=== PATIENT | female | born 1990 | race Caucasian/White ===

== ENCOUNTER → 2016-06-23 | Outpatient (CLI) | payer OTHER ==
[~2016-06-23] MED LIST: AMIT50TA13 PO; CYMB30CA PO; GABA600T PO; HORI600T PO; HYDR-3516 PO; LITH300 PO; SERT100 PO; VITA20003 PO; VYVA30CA5 PO; Z.0.BCPILL PO
[2016-06-23 09:50] LABS: AUTOMATED NEUTROPHIL # 3.3 TH/MM3 (1.8-7.7); BASOPHIL % 0.6 % (0.0-2.0); EOSINOPHIL # 0.3 TH/MM3 (0-0.4); EOSINOPHIL % 4.1 % (0.0-4.0); HEMATOCRIT 40.8 % (35.0-46.0); HEMO FLAGS DIFF FINAL; LYMPH % 41.3 % (9.0-44.0); LYMPHOCYTE # 2.9 TH/MM3 (1.0-4.8); MEAN CELL VOLUME 87.2 FL (80.0-100.0); MEAN CORPUSCULAR HEMOGLOBIN 29.4 PG (27.0-34.0); MEAN CORPUSCULAR HGB CONC 33.7 % (32.0-36.0); MONO % 6.4 % (0.0-8.0); NEUT % 47.6 % (16.0-70.0); PLATELET COUNT 172 TH/MM3 (150-450); RED BLOOD COUNT 4.68 MIL/MM3 (4.00-5.30); RED CELL DISTRIBUTION WIDTH 14.2 % (11.6-17.2); WHITE BLOOD COUNT 6.9 TH/MM3 (4.0-11.0)
[2016-06-23 09:54] LABS: APTT (PATIENT) 27.3 SEC (24.3-30.1); INTERNATIONAL NORMALIZED RATIO 0.9 RATIO; PROTHROMBIN TIME - PATIENT 10.4 SEC (9.8-11.6)
[2016-06-23 09:57] LABS: BACTERIA, URINE FEW /hpf; BLOOD, URINE LARGE (NEG); GLUCOSE,URINE NEG (NEG); KETONE, URINE NEG (NEG); MUCUS URINE FEW /lpf (OCC); NITRITE,URINE NEG (NEG); PH, URINE 5.5 (5.0-8.5); SQUAMOUS EPITHELIAL CELL URINE 6 /hpf (0-5); URINE COLOR YELLOW (YELLW/STRAW)
[2016-06-23 09:58] LABS: COMMENT (UR) CULT NOT INDICATED; CULTURE IF INDICATED CULT NOT INDICATED
[2016-06-23 10:17] LABS: ALKALINE PHOSPHATASE 58 U/L (45-117); ALT (GPT) 19 U/L (10-53); ANION GAP 8 MEQ/L (5-15); AST (GOT) 13 U/L (15-37); BICARBONATE 27.1 MEQ/L (21.0-32.0); BLOOD UREA NITROGEN 15 MG/DL (7-18); CHLORIDE 107 MEQ/L (98-107); GLOMERULAR FILTRATION RATE 93 ML/MIN (>89); GLUCOSE,FASTING 80 MG/DL (74-99); POTASSIUM 4.1 MEQ/L (3.5-5.1); SODIUM (NA) 142 MEQ/L (136-145); TOTAL BILIRUBIN ADULT 0.3 MG/DL (0.2-1.0)
== END ==
LOC: CPRE 08:39
PROVIDERS: ATTEND Colon & Rectal Surgery
DX: Z01.812 Encounter for preprocedural laboratory examination (principal); K62.3 Rectal prolapse
CPT/HCPCS: 36415; 80053; 81001; 85025; 85610; 85730

== ENCOUNTER 2016-06-29 11:32 | Inpatient (IN) | payer OTHER ==
[~2016-06-29] VITALS: Ht 157.5 cm; Wt 66.3 kg
[~2016-06-29 11:32] MED LIST changes: -AMIT50TA13 PO; -HYDR-3516 PO; -LITH300 PO; -SERT100 PO; -Z.0.BCPILL PO
[2016-06-29] MEDS ORDERED: ONDANSETRON HCL 4 MG/2 ML VIAL IV PUSH ONE (12:00)
[2016-06-29] MEDS ORDERED: LACTATED RINGER'S 1000 ML INJ 1,000 ML IV ONE (12:00)
[2016-06-29] MEDS ORDERED: NEOSTIGMINE 3 MG/3 ML SYR IV ONE (12:00)
[2016-06-29] MEDS ORDERED: PROPOFOL 200 MG/20 ML AMP IV ONE (12:00)
[2016-06-29] MEDS ORDERED: ACETAMINOPHEN 1000 MG/100 ML VIAL IV ONE ×2 (12:00→15:34)
[2016-06-29] MEDS ORDERED: PHENYLEPH/NS 1000 MCG/10 ML SYR IV ONE (12:00)
[2016-06-29] MEDS ORDERED: CHLORHEXIDINE GLUCONATE 2 % 1 PACK (2 CLOTHS) TOP SCH (12:15)
[2016-06-29] MEDS ORDERED: POVIDONE IODINE 5% (ANTISEPSIS KIT) 4 APPLICATIONS EACH NARE SCH (12:15)
[2016-06-29 12:20] VITALS: BP 122/71; PULSE 125; RESP 16; TEMP 98.8; O2SAT 100
[2016-06-29] MEDS ORDERED: LACTATED RINGER'S 1000 ML INJ 1,000 ML ONE (12:37)
[2016-06-29] MEDS ORDERED: MIDAZOLAM HCL 2 MG/2 ML VIAL ONE (13:20)
[2016-06-29] MEDS ORDERED: DEXAMETHASONE SOD PHOS 4 MG/ML VIAL ONE (13:20)
[2016-06-29] MEDS ORDERED: ceFAZolin INJ 1,000 MG VIAL ONE (13:29)
[2016-06-29] MEDS ORDERED: metroNIDAZOLE 500 MG INJ 100 ML IV ONE (13:30)
[2016-06-29] MEDS ORDERED: ceFAZolin INJ 1,000 MG VIAL IV ONE (13:55)
[2016-06-29] MEDS ORDERED: fentaNYL CITRATE 250 MCG/5 ML AMP ONE ×2 (15:34→16:13)
[2016-06-29] MEDS ORDERED: POTASSIUM CHLOR 40 MEQ PREMIX 100 ML IV PRN (16:15)
[2016-06-29] MEDS ORDERED: ENALAPRILAT 2.5 MG/2 ML VIAL IV PRN (16:15)
[2016-06-29] MEDS ORDERED: ENALAPRILAT 1.25 MG/ML VIAL IV PRN (16:15)
[2016-06-29] MEDS ORDERED: NALOXONE HCL 0.4 MG/ML AMP IV PRN (16:15)
[2016-06-29] MEDS ORDERED: SODIUM CHLORIDE 0.9% FLUSH 5 ML FLUSH IVF PRN (16:15)
[2016-06-29] MEDS ORDERED: POTASSIUM CHLOR 20 MEQ PREMIX 100 ML IV PRN (16:15)
[2016-06-29] MEDS ORDERED: ACETAMINOPHEN 325 MG TAB PO PRN (16:15)
[2016-06-29] MEDS ORDERED: KETOROLAC TROMETHAMINE 30 MG/ML (IVP) VIAL IVP PRN (16:15)
[2016-06-29] MEDS ORDERED: BENZOCAINE 6 MG/MENTHOL 10 MG LOZENGE SUCK-ON PRN (16:15)
[2016-06-29] MEDS ORDERED: MORPHINE SULFATE 4 MG/ML INJ IV PUSH PRN (16:15)
[2016-06-29] MEDS ORDERED: diphenhydrAMINE HCL 50 MG/ML VIAL IV PRN (16:15)
[2016-06-29] MEDS ORDERED: Post-op Orders (for Pharmacy) MISC XX ONE (16:15)
[2016-06-29] MEDS ORDERED: ACETAMINOPHEN/HYDROcodone 325 MG/5 MG TAB PO PRN ×2 (16:15)
[2016-06-29] MEDS ORDERED: ONDANSETRON HCL 4 MG/2 ML VIAL IV PRN (16:15)
[2016-06-29] MEDS ORDERED: *MEPERIDINE 25 MG INJ VIAL PERIprocedural Use ONLY ONE (16:19)
[2016-06-29] MEDS ORDERED: *morphine SULFATE 8 MG/ML PERIprocedure ONLY ONE ×3 (16:31→17:02)
[2016-06-29 16:46] LABS: AUTOMATED NEUTROPHIL # 9.2 TH/MM3 (1.8-7.7); BASOPHIL % 0.2 % (0.0-2.0); EOSINOPHIL % 0.1 % (0.0-4.0); HEMATOCRIT 42.1 % (35.0-46.0); HEMO FLAGS DIFF FINAL; LYMPHOCYTE # 0.8 TH/MM3 (1.0-4.8); MEAN CELL VOLUME 87.9 FL (80.0-100.0); MEAN CORPUSCULAR HEMOGLOBIN 28.9 PG (27.0-34.0); MEAN CORPUSCULAR HGB CONC 32.9 % (32.0-36.0); NEUT % 90.7 % (16.0-70.0); PLATELET COUNT 166 TH/MM3 (150-450); RED BLOOD COUNT 4.78 MIL/MM3 (4.00-5.30); WHITE BLOOD COUNT 10.1 TH/MM3 (4.0-11.0)
[2016-06-29] MEDS: D5-NS + KCL 20 MEQ INJ 1,000 ML IV SCH (17:00)
[2016-06-29 17:09] LABS: BICARBONATE 22.6 MEQ/L (21.0-32.0); POTASSIUM 3.6 MEQ/L (3.5-5.1)
[2016-06-29] MEDS: VANCOMYCIN INJ 1,000 MG in SODIUM CHLOR 0.9% 250 ML INJ 250 ML IV SCH (17:13)
[2016-06-29] MEDS ORDERED: *diphenhydrAMINE HCL 50 MG/ML VIAL PERIprocedural Use ONLY ONE (17:28)
[2016-06-29] MEDS ORDERED: *HYDROmorphone PF 1 MG VIAL PERIprocedural Use ONLY ONE (17:38)
[2016-06-29] MEDS ORDERED: DO NOT ADM ANY ANTICOAGULANT DRUGS XX PRN (17:45)
[2016-06-29] MEDS ORDERED: LORazepam 2 MG/ML VIAL ONE (17:52)
[2016-06-29] MEDS ORDERED: KETOROLAC TROMETHAMINE 30 MG/ML (IVP) VIAL ONE (18:21)
[2016-06-29] MEDS ORDERED: LACTATED RINGER'S 1000 ML INJ 500 ML IV ONE (18:45)
[2016-06-29] MEDS ORDERED: KETOROLAC TROMETHAMINE 30 MG/ML (IVP) VIAL IVP ONE (18:45)
[2016-06-29 20:00] VITALS: BP 115/60; PULSE 132; PULSE 135; RESP 18; TEMP 98.1; O2SAT 98
[2016-06-29] MEDS: SODIUM CHLORIDE 0.9% FLUSH 5 ML FLUSH IVF SCH (20:56)
[2016-06-29 21:00] VITALS: PULSE 122
[2016-06-29 22:00] VITALS: PULSE 120
[2016-06-29 23:00] VITALS: PULSE 136
[2016-06-30] VITALS (20 sets, daily range): BP systolic 106–112; BP diastolic 53–76; PULSE 98–116; RESP 18; TEMP 97.9–98.2; O2SAT 98–100
[2016-06-30] MEDS: D5-NS + KCL 20 MEQ INJ 1,000 ML IV SCH ×2 (00:40→14:00)
[2016-06-30] MEDS: KETOROLAC TROMETHAMINE 30 MG/ML (IVP) VIAL IVP SCH ×2 (04:19→09:31)
[2016-06-30] MEDS: VANCOMYCIN INJ 1,000 MG in SODIUM CHLOR 0.9% 250 ML INJ 250 ML IV SCH (04:19)
[2016-06-30 06:31] LABS: AUTOMATED NEUTROPHIL # 5.9 TH/MM3 (1.8-7.7); BASOPHIL % 0.2 % (0.0-2.0); EOSINOPHIL % 0.5 % (0.0-4.0); HEMATOCRIT 35.2 % (35.0-46.0); HEMO FLAGS DIFF FINAL; LYMPH % 18.5 % (9.0-44.0); LYMPHOCYTE # 1.6 TH/MM3 (1.0-4.8); MEAN CELL VOLUME 86.8 FL (80.0-100.0); MEAN CORPUSCULAR HGB CONC 33.4 % (32.0-36.0); MONO % 9.7 % (0.0-8.0); NEUT % 71.1 % (16.0-70.0); PLATELET COUNT 156 TH/MM3 (150-450); RED BLOOD COUNT 4.05 MIL/MM3 (4.00-5.30); RED CELL DISTRIBUTION WIDTH 13.9 % (11.6-17.2); WHITE BLOOD COUNT 8.4 TH/MM3 (4.0-11.0)
[2016-06-30 06:56] LABS: BICARBONATE 26.1 MEQ/L (21.0-32.0); POTASSIUM 3.8 MEQ/L (3.5-5.1)
[2016-06-30] MEDS: GABAPENTIN 300 MG CAP PO SCH ×5 (09:00→15:28)
[2016-06-30] MEDS ORDERED: PANTOPRAZOLE SODIUM 40 MG VIAL IVP SCH (09:00)
[2016-06-30] MEDS ORDERED: DULoxetine HCl DR 30 MG CAP PO SCH (09:00)
[2016-06-30] MEDS ORDERED: LISDEXAMFETAMINE DIMESYLATE 30 MG CAP PO SCH (09:00)
[2016-06-30] MEDS: SODIUM CHLORIDE 0.9% FLUSH 5 ML FLUSH IVF SCH (09:00)
[2016-06-30] MEDS ORDERED: HEPARIN SODIUM - SQ 10,000 UNITS/ML VIAL SQ SCH (15:15)
--- NOTE | 2016-06-30 15:51 | HHI.PR ---
Subjective Remarks POD#1 s/p lap assisted rectopexy comfortable, wants to go home Objective Vital Signs Date Time Temp Pulse Resp B/P Pulse Ox O2 Delivery O2 Flow Rate FiO2 06/30/16 15:29 98.1 110 18 106/67 99 06/30/16 15:00 99 06/30/16 14:00 102 06/30/16 13:00 106 06/30/16 12:00 102 06/30/16 11:43 98.2 102 18 108/76 98 06/30/16 11:00 102 06/30/16 10:31 18 06/30/16 10:00 105 06/30/16 09:00 106 06/30/16 08:57 98 21 06/30/16 08:00 98.1 110 18 111/74 99 06/30/16 08:00 110 06/30/16 07:00 103 06/30/16 06:00 114 06/30/16 05:00 98 06/30/16 04:00 98.1 113 18 106/69 100 06/30/16 04:00 99 06/30/16 03:00 101 06/30/16 02:22 98 06/30/16 02:00 102 06/30/16 01:00 108 06/30/16 00:00 116 06/30/16 00:00 97.9 110 18 112/53 98 06/29/16 23:00 136 06/29/16 22:00 120 06/29/16 21:00 122 06/29/16 20:00 132 06/29/16 20:00 98.1 135 18 115/60 98 06/29/16 18:50 98.2 126 16 112/60 98 Nasal Cannula 2 06/29/16 18:45 128 16 110/62 98 Nasal Cannula 2 06/29/16 18:30 132 16 111/64 97 Nasal Cannula 2 06/29/16 18:15 133 16 112/62 97 Nasal Cannula 2 06/29/16 18:00 129 16 114/61 97 Nasal Cannula 2 06/29/16 17:45 127 16 111/63 96 Nasal Cannula 2 06/29/16 17:30 128 16 110/65 96 Nasal Cannula 2 06/29/16 17:15 129 16 113/68 96 Nasal Cannula 2 06/29/16 17:07 15 06/29/16 17:00 125 16 115/69 95 Nasal Cannula 2 06/29/16 16:51 15 06/29/16 16:51 15 06/29/16 16:45 122 17 117/63 95 Nasal Cannula 2 06/29/16 16:36 15 06/29/16 16:30 124 17 118/62 95 Nasal Cannula 2 06/29/16 16:08 97.5 120 18 116/57 100 Nasal Cannula 3 I/O 06/29/16 06/29/16 06/29/16 06/30/16 06/30/16 06/30/16 07:00 15:00 23:00 07:00 15:00 23:00 Intake Total 2500 ml 1860 ml Output Total 1450 ml 2225 ml Balance 1050 ml -365 ml Intake Oral 360 ml IV Total 1000 ml 1500 ml Other 1500 ml Output Urine Total 1400 ml 2225 ml Estimated Blood Loss 50 ml Result Diagram: 06/30/16 0550 06/30/16 0550 Objective Remarks Abdomen soft, nondistended, tender Dressings c/d/i Assessment and Plan Assessment and Plan Doing well Home today Raven Rubin MD Jun 30, 2016 15:51
[2016-06-30] MEDS ORDERED: HYDR-3516 PO (15:52)
--- NOTE | 2016-06-30 22:58 | MP ---
cc: KIRSTEN RUBIN M.D., JASON DATE OF SURGERY 06/29/16 PREOPERATIVE DIAGNOSIS Rectal prolapse. DIAGNOSIS Rectal prolapse PROCEDURE Laparoscopic assisted rectopexy Lysis of adhesions. 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 She was recently noted have a small segment of rectal prolapse. OPERATIVE FINDINGS A mildly redundant sigmoid colon and adhesions of the omentum to the right anterior lower abdominal wall. PROCEDURE IN DETAIL The patient was brought to the operating room. She was then placed in the supine position. After induction of general anesthesia, the patient was placed in Edgar stirrups and all bony prominences were carefully padded. The skin of the anterior abdominal wall, as well as the perineal area, was then prepped and draped in the usual sterile fashion. A site was chosen for the camera, in the lower part of the umbilicus. A #5 trocar was placed at this location under direct vision, using the laparoscope. CO2 insufflation was then begun and a peritoneal survey was performed. The patient was noted have adhesions of the omentum down to the right anterior lower abdominal wall, but nothing else that would preclude the laparoscopic approach. A #5 trocar was then placed just inside the left anterior superior iliac spine and the adhesions on the right side of the abdomen were dissected free. A third 5 trocar was placed just inside the right anterior superior iliac spine and the patient was hydroplaned with head down and slightly to the right. The patient was noted to have a mildly redundant sigmoid colon. The adhesions to the left lateral pelvic sidewall were then dissected free, and the peritoneum was then opened on the right. Dissection continued in this plane until the sacral promontory was visible from the left and down onto the mid rectum. The rectosigmoid was then retracted to the left and the peritoneum was opened on the right and dissection continued until we met our previous dissection. At this point, we had a fairly good dissection and I felt that I had adequate tissue to bring up to the sacrum and the open portion the procedure was begun. A 10-12 cm suprapubic incision was then made and, using electrocautery, dissection was carried down to the fascia of the anterior abdominal wall, which was split the length of the skin incision. The medial fibers of the rectus abdominis muscle were then divided using electrocautery. The posterior fascia/ peritoneum was then divided, entering the peritoneal cavity. A little additional dissection then took place, dissecting a little further down posterior to the rectum and up and around the right and left side. At this point, the peritoneum on the right and left side of the mid rectum was then pulled up and came up snugly to the sacral promontory, but without tension. Beginning on the right, using an 0 Vicryl suture, a stitch was placed through the peritoneum, to the sacral promontory, and back out through the peritoneum. This was then held but not tied. A second suture of 2-0 Prolene was then placed in the same fashion. Two like sutures were placed on the left side of the rectum and a small amount of bleeding at the sacral promontory was controlled using electrocautery. The sutures were then tied. The Vicryl suture on the left side did pull through, bit as the Prolene suture was already secured I elected not to proceed with a repeat Vicryl suture on that side. After all sutures were tied, the bowel lay in a nice orientation without tension but securely attached to the sacral promontory. All dissection beds were examined. There was no sign of any significant bleeding noted. The right lower quadrant trocar site was then examined as I felt it had had a little bit of bleeding at the beginning and it also had ceased bleeding. The peritoneal cavity was irrigated with warm normal saline. The posterior fascia at the suprapubic incision was closed in a running fashion using #1 PDS and the anterior fascia of the suprapubic incision was closed in running fashion using #1 PDS. The wounds were copiously irrigated with warm normal saline and the skin at suprapubic incision was closed in a running subcuticular fashion using 3-0 Vicryl. The skin at the trocar sites were closed in interrupted subcuticular fashion using 3-0 Vicryl. Steri-Strips and sterile dressings were then applied. All sponge, needle and instrument counts were correct and the patient was returned to the post anesthesia care unit in stable condition. MD WON Christensen/ /4:17 PM /10:39 PM TERESA
--- NOTE | 2016-07-07 22:09 | MD ---
cc: KIRSTEN LY M.D. ADMISSION DATE: 06/29/2016 DISCHARGE DATE: 06/30/2016 ADMISSION DIAGNOSES 1. Rectal prolapse. 2. Interstitial cystitis. DISCHARGE DIAGNOSES 1. Rectal prolapse. 2. Interstitial cystitis. PROCEDURE Laparoscopic-assisted rectopexy. HOSPITAL COURSE The patient the 26-year-old female with interstitial cystitis who developed rectal prolapse. She was admitted to the hospital on June 29, 2016 after an outpatient bowel prep. She was taken to the operating room where she underwent the above-named procedures. Postoperatively she did well and was discharged home on postoperative day number 1 with instructions to follow-up myself in the office. MD WON Christensen/KK /3:56 PM /10:06 PM MTDD
== END 2016-06-30 16:39 | disposition home or self-care (01) | DRG 331 ==
LOC: HSDC 11:32 → HSDI 16:23 → HCIN 19:01
PROVIDERS: ADMIT Colon & Rectal Surgery; ATTEND Colon & Rectal Surgery
PROC: 0DNS4ZZ (ICD-10-PCS; 2016-06-29)
PROC: 0DSP4ZZ Reposition Rectum, Percutaneous Endoscopic Approach (ICD-10-PCS; principal; 2016-06-29 13:30)
DX: K62.3 Rectal prolapse (principal); N30.10 Interstitial cystitis (chronic) without hematuria; F32.9 Major depressive disorder, single episode, unspecified; K66.0 Peritoneal adhesions (postprocedural) (postinfection)
CPT/HCPCS: 80048; 85025; 86850; 86900; 86901; 94150; C9113; J0131; J0690; J1100; J1170; J1200; J1644; J1885; J2060; J2175; J2250; J2270; J2370; J2405; J2710; J3010; J3370; J3480; J7050; J7120